=== PATIENT | female | born 1965 | race Caucasian/White ===

== ENCOUNTER 2018-09-23 08:55 | Emergency (ER) | payer BC, MEDICAID ==
[~2018-09-23] VITALS: Ht 175.3 cm; Wt 79.5 kg
[2018-09-23] MEDS ORDERED: normal saline 1000ML IV soln IV ONE (09:15)
[2018-09-23 09:33] LABS: CLARITY,URINE CLEAR (Clear); COLOR,URINE YELLOW (Yellow); GLUCOSE, URINE >=1000 mg/dl (Neg); KETONES,URINE NEGATIVE (Neg); LEUKOCYTE ESTERASE ,URINE NEGATIVE (Neg); NITRITES, URINE NEGATIVE (Neg); OCCULT BLOOD,URINE NEGATIVE (Neg); PROTEIN,URINE NEGATIVE (Neg); UROBILINOGEN,URINE 0.2 E.U/dL (0.2-1.0)
[2018-09-23 09:36] LABS: UA COLLECTION TYPE CLN CATCH MIDSTREAM
[2018-09-23 09:51] LABS: BACTERIA,URINE NONE SEEN /HPF (Neg); MUCUS STRANDS FEW /LPF (Neg); RBC,URINE NONE SEEN /HPF (0-2); SQUAMOUS EPITHELIAL CELL,UR FEW /LPF (FEW); WBC,URINE 0-4 /HPF (0-4)
[2018-09-23] MEDS ORDERED: CHOL10002 PO (10:03)
[2018-09-23] MEDS ORDERED: LEVO100T9 PO (10:03)
[2018-09-23] MEDS ORDERED: LISI-600 PO (10:03)
[2018-09-23] MEDS ORDERED: METF500T PO (10:03)
[2018-09-23] MEDS ORDERED: OMEP40CA13 PO (10:03)
[2018-09-23] MEDS ORDERED: GABA-532 PO (10:03)
[2018-09-23] MEDS ORDERED: ATOR20TA PO (10:03)
[2018-09-23 10:15] LABS: BASOPHILS % (AUTO) 0.9 % (0-1); EOSINOPHILS # (AUTO) 0.2 X10'3 (0-0.9); EOSINOPHILS % (AUTO) 3.5 % (0-6); HEMOGLOBIN 13.6 g/dl (12.0-16.0); LYMPHOCYTES # (AUTO) 1.5 X10'3 (1.1-4.8); LYMPHOCYTES % (AUTO) 25.7 % (21-51); MEAN CORPUSCULAR HEMOGLOBIN 31.2 PG (27.0-31.0); MEAN CORPUSCULAR HGB CONC 33.3 g/dL (33.0-36.5); MEAN CORPUSCULAR VOLUME 93.8 FL (78-98); MEAN PLATELET VOLUME 10.1 FL (7.4-10.4); MONOCYTES # (AUTO) 0.4 X10'3 (0-0.9); MONOCYTES % (AUTO) 7.6 % (2-12); NEUTROPHILS # (AUTO) 3.6 X10'3 (1.8-7.7); NEUTROPHILS % (AUTO) 62.3 % (42-75); PLATELET COUNT 217 X10'3 (140-440); RED BLOOD COUNT 4.37 X10'6 (4.20-5.60); RED CELL DISTRIBUTION WIDTH 13.1 % (11.5-14.5); WHITE BLOOD COUNT 5.7 X10'3 (4.5-11.0)
[2018-09-23] MEDS ORDERED: insulin regular, human 10 units/0.1 ml syringe IV ONE (10:25)
[2018-09-23 11:01] LABS: ALANINE AMINOTRANSFERASE 41 U/L (12-78); ALBUMIN 3.2 G/DL (3.4-5.0); ALBUMIN/GLOBULIN RATIO 0.9 (1.1-1.5); ALKALINE PHOSPHATASE 200 IU/L (46-116); ANION GAP 9 (8-16); ASPARTATE AMINO TRANSFERASE 21 U/L (10-37); BILIRUBIN,TOTAL 0.5 MG/DL (0.1-1.0); BLOOD UREA NITROGEN 19 MG/DL (7-18); BUN/CREATININE RATIO 14.1 (6.6-38.0); CALCIUM 8.6 MG/DL (8.5-10.1); CHLORIDE 97 MMOL/L (99-107); CREATININE 1.35 MG/DL (0.40-0.90); MAGNESIUM 1.6 MG/DL (1.5-2.4); POTASSIUM 4.6 MMOL/L (3.5-5.1); SODIUM 130 MMOL/L (135-145); TOTAL PROTEIN 6.7 G/DL (6.4-8.2); eGFR 41 ML/MIN
[2018-09-23 11:42] LABS: GLUCOSE 689 MG/DL (70-104)
[2018-09-23 11:43] VITALS: BP 144/79
--- NOTE | 2018-09-23 11:54 | NUR ---
went to discharge pt and informed her of her original blood sugar level and she said "it's probably normally that high." i informed her that if she doesn't get it under control she will end up dying. the pt states "i wish i would." i asked the pt if she has any plan to kill herself. she said "no, i don't think i'd have the strength to do that." i asked about her health issues and her home situation and whether she has anyone she can talk to. she started to cry and state that she recently lost her job and then because of this she lost her home and she is living with her dad but she doesn't have a torres and he doesn't get off work till 5pm. she says "so many things have been happening and i don't know how to get this under control." talked with charge and MD and we are going to work on getting her into the diabetic clinic this week because she needs better medication management for her diabetes. informed the pt of the plan. pt in no distress.
[2018-09-23] MEDS ORDERED: naproxen sodium 220mg tablet PO SCH (12:35)
[2018-09-23] MEDS ORDERED: naproxen sodium 220mg tablet PO ONE (12:35)
[2018-09-23] MEDS ORDERED: GLIP2.5T3 PO (12:55)
[2018-09-23] MEDS ORDERED: GLIP5TAB13 PO (12:55)
== END 2018-09-23 12:54 | disposition home or self-care (01) ==
LOC: ER 08:56
DX: E11.65 Type 2 diabetes mellitus with hyperglycemia (principal); R53.83 Other fatigue; R06.02 Shortness of breath; Z88.2 Allergy status to sulfonamides; Z79.899 Other long term (current) drug therapy
CPT/HCPCS: 36415; 71045; 80053; 81001; 82948; 83735; 83880; 84443; 84484; 85025; 93005; 96361; 96374; 99284; J1815; J7030

== ENCOUNTER 2021-01-03 20:15 | Emergency (ER) | payer MEDICAID ==
[~2021-01-03] VITALS: Ht 177.8 cm; Wt 90.9 kg
[~2021-01-03 20:15] MED LIST: ATOR20TA PO; CHOL10002 PO; GABA-532 PO; GLIP2.5T3 PO; LEVO100T9 PO; LISI20TA28 PO; METF500T PO; OMEP40CA21 PO
[2021-01-03] MEDS ORDERED: HYDROcodone/acetaminophen 5mg/325mg tablet PO ONE (23:00)
[2021-01-03] MEDS ORDERED: ondansetron 4mg rapidly disintigrating tab PO ONE (23:00)
[2021-01-03] MEDS ORDERED: orphenadrine citrate 60mg/2ml inj. IM ONE (23:00)
[2021-01-03] MEDS ORDERED: ketorolac trometh inj. 60 MG/2 ML VIAL IM ONE (23:00)
[2021-01-03] MEDS ORDERED: NAPR-56 PO (23:03)
[2021-01-03] MEDS ORDERED: HYDR-3965 PO (23:03)
[2021-01-03] MEDS ORDERED: ORPH100T2 PO (23:03)
[2021-01-03] MEDS ORDERED: ONDA4TAB6 PO (23:03)
[2021-01-03 23:29] VITALS: BP 173/106
== END 2021-01-03 23:48 | disposition home or self-care (01) ==
LOC: ER 20:16
DX: S13.4XXA Sprain of ligaments of cervical spine, initial encounter (principal); M54.2 Cervicalgia; R51.9 Headache, unspecified; R11.0 Nausea; R53.83 Other fatigue; E11.9 Type 2 diabetes mellitus without complications; Z88.2 Allergy status to sulfonamides; Z79.899 Other long term (current) drug therapy; V87.7XXA Person injured in collision between other specified motor vehicles (traffic), initial encounter; Y93.89 Activity, other specified; Y92.89 Other specified places as the place of occurrence of the external cause; Y99.8 Other external cause status
CPT/HCPCS: 96372; 99284; J1885; J2360

== ENCOUNTER 2021-08-19 20:32 | Inpatient (IN) | payer MEDICAID ==
[~2021-08-19] VITALS: Ht 177.8 cm; Wt 93.4 kg
[~2021-08-19 20:32] MED LIST changes: +ONDA4TAB6 PO; +ORPH100T2 PO
[2021-08-19 21:11] LABS: BASOPHILS # (AUTO) 0.1 X10'3 (0-0.2); BASOPHILS % (AUTO) 0.6 % (0-1); EOSINOPHILS # (AUTO) 0.1 X10'3 (0-0.9); EOSINOPHILS % (AUTO) 1.5 % (0-6); HEMATOCRIT 40.1 % (35.0-45.0); HEMOGLOBIN 13.6 g/dl (12.0-16.0); LYMPHOCYTES # (AUTO) 2.8 X10'3 (1.1-4.8); LYMPHOCYTES % (AUTO) 35.3 % (21-51); MEAN CORPUSCULAR HEMOGLOBIN 30.8 PG (27.0-31.0); MEAN CORPUSCULAR VOLUME 90.4 FL (78-98); MEAN PLATELET VOLUME 9.4 FL (7.4-10.4); MONOCYTES # (AUTO) 0.5 X10'3 (0-0.9); MONOCYTES % (AUTO) 6.4 % (2-12); NEUTROPHILS # (AUTO) 4.5 X10'3 (1.8-7.7); NEUTROPHILS % (AUTO) 56.2 % (42-75); PLATELET COUNT 261 X10'3 (140-440); RED BLOOD COUNT 4.43 X10'6 (4.20-5.60); RED CELL DISTRIBUTION WIDTH 13.2 % (11.5-14.5); WHITE BLOOD COUNT 7.9 X10'3 (4.5-11.0)
[2021-08-19 21:26] LABS: ALANINE AMINOTRANSFERASE 49 U/L (12-78); ALBUMIN 3.9 G/DL (3.4-5.0); ALKALINE PHOSPHATASE 163 IU/L (46-116); ANION GAP 12 (8-16); ASPARTATE AMINO TRANSFERASE 22 U/L (10-37); BILIRUBIN,TOTAL 0.6 MG/DL (0.1-1.0); BLOOD UREA NITROGEN 29 MG/DL (7-18); BUN/CREATININE RATIO 14.5 (6.6-38.0); CALCIUM 9.7 MG/DL (8.5-10.1); CHLORIDE 102 MMOL/L (99-107); GLUCOSE 336 MG/DL (70-104); LIPASE 214 U/L (73-393); POTASSIUM 5.2 MMOL/L (3.5-5.1); SODIUM 140 MMOL/L (135-145); TOTAL CARBON DIOXIDE 26.2 MMOL/L (24-32); TOTAL PROTEIN 7.7 G/DL (6.4-8.2); eGFR 26 ML/MIN
[2021-08-19 21:33] LABS: CLARITY,URINE SLIGHTLY CLOUDY (Clear); COLOR,URINE YELLOW (Yellow); GLUCOSE, URINE 100 mg/dl (Neg); KETONES,URINE TRACE mg/dl (Neg); LEUKOCYTE ESTERASE ,URINE NEGATIVE (Neg); NITRITES, URINE NEGATIVE (Neg); OCCULT BLOOD,URINE NEGATIVE (Neg); PH,URINE 5.5 (4.8-8.0); PROTEIN,URINE NEGATIVE (Neg); UROBILINOGEN,URINE 0.2 E.U/dL (0.2-1.0)
[2021-08-19 21:35] LABS: UA COLLECTION TYPE CLN CATCH MIDSTREAM
[2021-08-19 21:48] LABS: MUCUS STRANDS MANY /LPF (Neg); RBC,URINE NONE SEEN /HPF (0-2); SQUAMOUS EPITHELIAL CELL,UR MANY /LPF (FEW); WBC,URINE 0-4 /HPF (0-4)
[2021-08-19 21:49] LABS: BACTERIA,URINE 1+ /HPF (Neg)
[2021-08-19] MEDS ORDERED: DULA0.75 (22:34)
[2021-08-19 23:00] LABS: HEMOGLOBIN A1C 10.1 % (4.5-6.2)
[2021-08-19] MEDS ORDERED: vancomycin/NS 1 GM ADD-VANTAGE 250 ML IV ONE (23:55)
[2021-08-19] MEDS ORDERED: piperacillin/tazo 3.375gm/50ml 50 ML IV ONE (23:55)
[2021-08-20] MEDS ORDERED: TETR-74 OP (00:30)
[2021-08-20] MEDS ORDERED: acetaminophen 325mg tablet PO PRN (02:15)
[2021-08-20] MEDS ORDERED: dextrose 50%-water 50ml dispensing syringe IV PRN ×2 (02:15)
[2021-08-20] MEDS ORDERED: magnesium Cl slow-release 64mg tablet PO PRN (02:15)
[2021-08-20] MEDS ORDERED: ondansetron/PF 4mg/2ml inj IV PRN (02:15)
[2021-08-20] MEDS ORDERED: mag hydrox/Alum hydrox/simeth 30ml oral suspension PO PRN (02:15)
[2021-08-20] MEDS ORDERED: magnesium 4gm in 100ml NS 100 ML IV PRN (02:15)
[2021-08-20] MEDS ORDERED: glucagon, human recombinant 1mg kit SUBCUT PRN (02:15)
[2021-08-20] MEDS ORDERED: potassium CL 10mEq/100ml bag 100 ML IV PRN (02:15)
[2021-08-20] MEDS ORDERED: magnesium 2GM in 50ml NS 50 ML IV PRN (02:15)
[2021-08-20] MEDS ORDERED: DEXTROSE 15 GM of carb/4 tabs (each vial/BOTTLE has 4 tablets) PO PRN ×2 (02:15)
[2021-08-20] MEDS ORDERED: magnesium hydroxide 30ml (MOM) UD suspension PO PRN (02:15)
[2021-08-20] MEDS ORDERED: MESSAGE TO PHARMACY PO ONE (02:15)
[2021-08-20] MEDS ORDERED: HYDROcodone/acetaminophen 5mg/325mg tablet PO PRN (02:15)
[2021-08-20] MEDS ORDERED: morphine 2 MG/ML inj. syringe IV PRN ×2 (02:15)
[2021-08-20] MEDS ORDERED: POTASSIUM BICARB 20meq eff tab 20 MEQ TABLET.EFF PO PRN ×2 (02:15)
[2021-08-20 04:04] LABS: MAGNESIUM 1.7 MG/DL (1.5-2.4); POTASSIUM 4.6 MMOL/L (3.5-5.1)
[2021-08-20 05:00] VITALS: BP 142/70
--- NOTE | 2021-08-20 05:00 | NUR ---
Patient in room PCU 3012. I have received report from [facility] and had the opportunity to ask questions and assume patient care.
[2021-08-20 06:00] VITALS: BP 127/59
--- NOTE | 2021-08-20 06:20 | NUR ---
Patient in room PCU 3012. I have received report from SIMONE Diggs and had the opportunity to ask questions and assume patient care.
--- NOTE | 2021-08-20 06:29 | NUR ---
Problems reprioritized. Patient report given, questions answered & plan of care reviewed with da.
[2021-08-20] MEDS ORDERED: lisinopril 20mg tablet PO SCH (08:00)
[2021-08-20] MEDS: K and/or MAG REPLACEMENT MC SCH ×2 (08:00→19:19)
[2021-08-20] MEDS ORDERED: gabapentin 300mg capsule PO SCH (08:00)
[2021-08-20] MEDS: atorvastatin 20mg tablet PO SCH (09:40)
[2021-08-20] MEDS: metFORMIN 500mg tablet PO SCH ×2 (09:40→18:30)
[2021-08-20] MEDS: lisinopril 10 MG tablet PO SCH (09:41)
[2021-08-20] MEDS: docusate sod 100mg capsule PO SCH ×2 (09:41→20:00)
[2021-08-20] MEDS: levoTHYROXINE 100mcg tablet PO SCH (09:41)
[2021-08-20] MEDS: pantoprazole 40mg Tablet.DR PO SCH (09:42)
[2021-08-20] MEDS: piperacillin/tazo 4.5gm/100ml 100 ML IV SCH ×2 (09:42→15:40)
[2021-08-20] MEDS: heparin, porcine 5000 units/ml vial SQ SCH ×2 (09:43→20:22)
--- NOTE | 2021-08-20 09:44 | NUR ---
Diabetes consult: Noted pt w/ hx of DM A1c 10.1 Per MD note pt seems reluctant to believe she can manage her BG. Provided pt w/ written and verbal DM ed w/ RD contact info. Pt did seem a little passive though verbalized understanding of the information Addendum: 08/20/21 at [address] Amended: Links added.
[2021-08-20] MEDS: insulin Lispro (HumaLOG) vial - multi-dose SQ SCH ×3 (09:49→19:05)
[2021-08-20 10:00] VITALS: BP 126/70
[2021-08-20] MEDS ORDERED: LORazepam 2 mg/ml vial IV PRN (11:20)
[2021-08-20] MEDS ORDERED: LORazepam 0.5 MG tablet PO PRN (11:20)
[2021-08-20] MEDS ORDERED: polyvinyl alcohol ophthalmic drops 15ml bottle EACHEYE PRN (12:50)
[2021-08-20 14:00] VITALS: BP 114/64
[2021-08-20] MEDS: fluconazole 100mg tablet PO SCH (15:39)
--- NOTE | 2021-08-20 15:50 | NUR ---
Report given to SIMONE Campbell via phone who is going to assume pt care once pt is transferred to room 4013B.
--- NOTE | 2021-08-20 16:30 | NUR ---
Received to room 4013B a/o x4, resting quietly. Request kinza.
[2021-08-20 18:00] VITALS: BP 114/72
--- NOTE | 2021-08-20 18:30 | NUR ---
Metformin was not administered earlier as patient is also on our sliding scale with humalog and lantus ordered. Day shift is to clarify with MD in AM if both patients meds and our sliding scale to be used.
--- NOTE | 2021-08-20 18:39 | NUR ---
PAGER ID: [phone] MESSAGE: [id number] Junior Alcaraz accu ck 65 before dinner. on metformin & insulin. Order changes? FOZIA [id number]
--- NOTE | 2021-08-20 18:40 | NUR ---
Patient in room ORTHO 4013. I have received report from Martha NICHOLS and had the opportunity to ask questions and assume patient care.
[2021-08-20] MEDS: gabapentin 300mg capsule PO SCH (20:21)
[2021-08-20] MEDS: HYDROcodone/acetaminophen 10/325mg tab PO PRN (20:37)
[2021-08-20 22:00] VITALS: BP 122/61
[2021-08-20] MEDS: insulin glargine (Lantus) pen - multi-dose SQ SCH (22:12)
[2021-08-21] MEDS: piperacillin/tazo 4.5gm/100ml 100 ML IV SCH ×4 (00:10→17:33)
[2021-08-21] MEDS: vancomycin/NS 1 GM ADD-VANTAGE 250 ML IV SCH (00:52)
[2021-08-21 06:00] VITALS: BP 97/56
--- NOTE | 2021-08-21 06:27 | NUR ---
Problems reprioritized. Patient report given, questions answered & plan of care reviewed with Martha NICHOLS.
[2021-08-21 06:44] LABS: BASOPHILS % (AUTO) 0.8 % (0-1); EOSINOPHILS # (AUTO) 0.1 X10'3 (0-0.9); EOSINOPHILS % (AUTO) 2.9 % (0-6); HEMATOCRIT 36.2 % (35.0-45.0); HEMOGLOBIN 12.3 g/dl (12.0-16.0); LYMPHOCYTES # (AUTO) 2.2 X10'3 (1.1-4.8); LYMPHOCYTES % (AUTO) 43.5 % (21-51); MEAN CORPUSCULAR HEMOGLOBIN 30.5 PG (27.0-31.0); MEAN CORPUSCULAR VOLUME 89.8 FL (78-98); MEAN PLATELET VOLUME 10.1 FL (7.4-10.4); MONOCYTES # (AUTO) 0.4 X10'3 (0-0.9); MONOCYTES % (AUTO) 7.2 % (2-12); NEUTROPHILS # (AUTO) 2.3 X10'3 (1.8-7.7); NEUTROPHILS % (AUTO) 45.6 % (42-75); PLATELET COUNT 180 X10'3 (140-440); RED BLOOD COUNT 4.03 X10'6 (4.20-5.60); RED CELL DISTRIBUTION WIDTH 13.5 % (11.5-14.5); WHITE BLOOD COUNT 5.1 X10'3 (4.5-11.0)
[2021-08-21] MEDS: metFORMIN 500mg tablet PO SCH ×2 (07:00→17:28)
[2021-08-21 07:01] LABS: ALANINE AMINOTRANSFERASE 55 U/L (12-78); ALBUMIN 2.7 G/DL (3.4-5.0); ALBUMIN/GLOBULIN RATIO 0.8 (1.1-1.5); ALKALINE PHOSPHATASE 146 IU/L (46-116); ANION GAP 11 (8-16); ASPARTATE AMINO TRANSFERASE 39 U/L (10-37); BILIRUBIN,TOTAL 0.5 MG/DL (0.1-1.0); BLOOD UREA NITROGEN 26 MG/DL (7-18); BUN/CREATININE RATIO 17.3 (6.6-38.0); CALCIUM 9.2 MG/DL (8.5-10.1); CHLORIDE 104 MMOL/L (99-107); GLUCOSE 234 MG/DL (70-104); POTASSIUM 4.5 MMOL/L (3.5-5.1); SODIUM 140 MMOL/L (135-145); TOTAL CARBON DIOXIDE 25.5 MMOL/L (24-32); eGFR 36 ML/MIN
[2021-08-21] MEDS: docusate sod 100mg capsule PO SCH ×2 (08:00→20:00)
[2021-08-21] MEDS: K and/or MAG REPLACEMENT MC SCH ×2 (08:00→20:00)
[2021-08-21] MEDS: insulin Lispro (HumaLOG) vial - multi-dose SQ SCH ×2 (08:45→12:59)
[2021-08-21] MEDS: levoTHYROXINE 100mcg tablet PO SCH (08:47)
[2021-08-21] MEDS: lisinopril 10 MG tablet PO SCH (08:47)
[2021-08-21] MEDS: atorvastatin 20mg tablet PO SCH (08:47)
[2021-08-21] MEDS: gabapentin 300mg capsule PO SCH ×2 (08:47→20:08)
[2021-08-21] MEDS: heparin, porcine 5000 units/ml vial SQ SCH ×2 (08:48→20:09)
[2021-08-21] MEDS: fluconazole 100mg tablet PO SCH (08:50)
[2021-08-21] MEDS: pantoprazole 40mg Tablet.DR PO SCH (08:50)
--- NOTE | 2021-08-21 13:05 | NUR ---
Paged earlier on admin metformin and insulin together. no answer, [facility]. Yes ok to give both. Plan to drop back to level 2 at dinner.
[2021-08-21 14:00] VITALS: BP 126/58
--- NOTE | 2021-08-21 18:41 | NUR ---
Blood sugar wnl, restarting metformin and will need to requalify for insulin coverage. Reported this to May RN
[2021-08-21 19:55] VITALS: BP 112/66
[2021-08-21] MEDS: HYDROcodone/acetaminophen 10/325mg tab PO PRN (20:08)
[2021-08-21] MEDS: insulin glargine (Lantus) pen - multi-dose SQ SCH (21:00)
[2021-08-21 22:00] VITALS: BP 105/63
[2021-08-22] MEDS: vancomycin/NS 1 GM ADD-VANTAGE 250 ML IV SCH (00:31)
[2021-08-22] MEDS: piperacillin/tazo 4.5gm/100ml 100 ML IV SCH (02:36)
[2021-08-22 06:27] VITALS: BP 107/59
--- NOTE | 2021-08-22 06:27 | NUR ---
Received report from Martha, RN
[2021-08-22 06:31] LABS: BASOPHILS % (AUTO) 0.6 % (0-1); EOSINOPHILS # (AUTO) 0.1 X10'3 (0-0.9); EOSINOPHILS % (AUTO) 2.4 % (0-6); HEMATOCRIT 34.8 % (35.0-45.0); HEMOGLOBIN 12.1 g/dl (12.0-16.0); LYMPHOCYTES # (AUTO) 2.2 X10'3 (1.1-4.8); MEAN CORPUSCULAR HEMOGLOBIN 31.3 PG (27.0-31.0); MEAN CORPUSCULAR HGB CONC 34.8 g/dL (33.0-36.5); MEAN CORPUSCULAR VOLUME 89.9 FL (78-98); MEAN PLATELET VOLUME 9.5 FL (7.4-10.4); MONOCYTES # (AUTO) 0.4 X10'3 (0-0.9); NEUTROPHILS # (AUTO) 3.3 X10'3 (1.8-7.7); PLATELET COUNT 189 X10'3 (140-440); RED BLOOD COUNT 3.88 X10'6 (4.20-5.60); RED CELL DISTRIBUTION WIDTH 13.3 % (11.5-14.5)
[2021-08-22 06:59] LABS: ALANINE AMINOTRANSFERASE 80 U/L (12-78); ALBUMIN 2.7 G/DL (3.4-5.0); ALBUMIN/GLOBULIN RATIO 0.8 (1.1-1.5); ALKALINE PHOSPHATASE 149 IU/L (46-116); ANION GAP 10 (8-16); ASPARTATE AMINO TRANSFERASE 61 U/L (10-37); BILIRUBIN,TOTAL 0.3 MG/DL (0.1-1.0); BLOOD UREA NITROGEN 26 MG/DL (7-18); BUN/CREATININE RATIO 13.3 (6.6-38.0); CALCIUM 8.8 MG/DL (8.5-10.1); CHLORIDE 102 MMOL/L (99-107); CHOL/HDL RATIO 4.8 (0.00-4.99); CHOLESTEROL 164 MG/DL (0-200); CREATININE 1.96 MG/DL (0.40-0.90); GLUCOSE 274 MG/DL (70-104); HDL CHOLESTEROL 34 MG/DL (35-60); LDL CHOLESTEROL 85 MG/DL (50-100); POTASSIUM 4.7 MMOL/L (3.5-5.1); SODIUM 135 MMOL/L (135-145); TOTAL CARBON DIOXIDE 23.1 MMOL/L (24-32); TOTAL PROTEIN 6.1 G/DL (6.4-8.2); TRIGLYCERIDES 279 MG/DL (20-135); eGFR 27 ML/MIN
--- NOTE | 2021-08-22 07:03 | NUR ---
In to check 0700 blood sugar patient expresses "i want to get the fuck out of here" advised patient it is within her rights to leave against medical advice at any time.
--- NOTE | 2021-08-22 07:30 | NUR ---
PAGER ID: [phone] MESSAGE: [id number], patient is going AMA.. maxi [phone] er
--- NOTE | 2021-08-22 07:39 | NUR ---
Patient signed AMA paper
--- NOTE | 2021-08-22 07:49 | NUR ---
patient left via elevator, ama paper signed risks explained
[2021-08-23] MEDS ORDERED: VANCOMYCIN LEVEL IV ONE (00:30)
== END 2021-08-22 07:28 | disposition left against medical advice (07) | DRG 383 ==
LOC: ER 20:33 → ED HOLD 08-20 02:18 → PCU 3S 08-20 05:01 → ORTHO 4S 08-20 16:30
PROVIDERS: ADMIT Internal Medicine; ATTEND Internal Medicine
DX: L03.032 Cellulitis of left toe (principal); N17.0 Acute kidney failure with tubular necrosis; E11.22 Type 2 diabetes mellitus with diabetic chronic kidney disease; E03.9 Hypothyroidism, unspecified; E11.65 Type 2 diabetes mellitus with hyperglycemia; E11.51 Type 2 diabetes mellitus with diabetic peripheral angiopathy without gangrene; E78.00 Pure hypercholesterolemia, unspecified; E11.42 Type 2 diabetes mellitus with diabetic polyneuropathy; E87.5 Hyperkalemia; I12.9 Hypertensive chronic kidney disease with stage 1 through stage 4 chronic kidney disease, or unspecified chronic kidney disease; Z53.29 Procedure and treatment not carried out because of patient's decision for other reasons; N18.9 Chronic kidney disease, unspecified; N89.8 Other specified noninflammatory disorders of vagina; Z91.11 Patient's noncompliance with dietary regimen; Z91.19 Patient's noncompliance with other medical treatment and regimen; Z88.2 Allergy status to sulfonamides; Z79.899 Other long term (current) drug therapy; Z79.890 Hormone replacement therapy
CPT/HCPCS: 36415; 73630; 73718; 80053; 80061; 81001; 82948; 83036; 83605; 83690; 83735; 84132; 84145; 84443; 85025; 87070; 87075; 87077; 87081; 87102; 87186; 96367; 96374; 99285; A6209; A6212; A6446; A6449; G0378; J1644; J1815; J2543; J3370; J7042